=== PATIENT | male | born 1995 | race Caucasian/White ===

== ENCOUNTER 2020-11-01 12:39 | Emergency (ER) | payer OTHER ==
[2020-11-01 12:48] VITALS: BP 123/76; PULSE 65; RESP 20; TEMP 98.1
[2020-11-01] MEDS ORDERED: LIDOCAINE 1%-EPI 1:100,000 20 ML VIAL SQ STA (12:52)
[2020-11-01] MEDS ORDERED: IBUPROFEN 600 MG TAB PO STA (13:06)
--- NOTE | 2020-11-01 13:21 | ED ---
General Adult HPI - General Chief complaint: Wound/Laceration Stated complaint: [facility] - shoulder lac Time Seen by Provider: 11/01/20 12:52 Source: patient, RN notes reviewed Mode of arrival: ambulatory Limitations: no limitations - History of Present Illness Initial comments: 25-year-old male presents to the emergency room for a chief complaint of right s houlder pain. Patient has a laceration to the right shoulder. He was at work when a metal tubing hit him and caused a laceration. States he is having pain which worsens with moving the shoulder.. Patient states his tetanus is up-to-date.Patient has no other complaints at this time including shortness of breath, chest pain, abdominal pain, nausea or vomiting, headache, or visual changes. - Related Data Previous Rx's Medication Instructions Recorded Cephalexin [Keflex] 500 mg PO QID 5 Days #20 cap 11/01/20 Allergies Allergy/AdvReac Type Severity Reaction Status Date / Time No Known Allergies Allergy Verified 11/01/20 12:48 Review of Systems ROS Statement: Those systems with pertinent positive or pertinent negative responses have been documented in the HPI. ROS Other: All systems not noted in ROS Statement are negative. Past Medical History Past Medical History: Asthma Additional Past Medical History / Comment(s): pneumothorax History of Any Multi-Drug Resistant Organisms: None Reported Additional Past Surgical History / Comment(s): chest tube Past Psychological History: No Psychological Hx Reported Smoking Status: Never smoker Past Alcohol Use History: None Reported Past Drug Use History: Marijuana General Exam Limitations: no limitations General appearance: alert, in no apparent distress Head exam: Present: atraumatic, normocephalic, normal inspection Eye exam: Present: normal appearance, PERRL, EOMI. Absent: scleral icterus, conjunctival injection, periorbital swelling ENT exam: Present: normal exam, mucous membranes moist Neck exam: Present: normal inspection. Absent: tenderness, meningismus, lymphadenopathy Respiratory exam: Present: normal lung sounds bilaterally. Absent: respiratory distress, wheezes, rales, rhonchi, stridor Cardiovascular Exam: Present: regular rate, normal rhythm, normal heart sounds. Absent: systolic murmur, diastolic murmur, rubs, gallop, clicks Extremities exam: Present: normal capillary refill (Capillary refill less than 2 seconds, radial pulse 2+.), other (Patient has a 3 cm laceration noted to the lateral aspect of the right proximal humerus area.) Course Vital Signs 11/01/20 12:45 Temperature 98.1 F Pulse Rate 65 Respiratory 20 Rate Blood Pressure 123/76 O2 Sat by Pulse 96 Oximetry Procedures - Laceration Laceration #1 Consent Obtained: verbal consent Indication: laceration Site: upper extremity Size (cm): 4 Depth: simple, single layer Anesthetic Used: lidocaine 1%, with epi Anesthesia Technique: local infiltration Amount (mls): 4 Pre-repair: wound explored, irrigated extensively (with saline pressure irrigation), deep structures intact Type of Sutures: vicryl Size of Sutures: 4-0 Number of Sutures: 7 Technique: simple, interrupted Patient Tolerated Procedure: well, no complications Medical Decision Making - Medical Decision Making Vitals are stable. X-ray shows no fracture or dislocation in the right shoulder. Wound was irrigated thoroughly with saline. Laceration was repaired with 7 simple interrupted sutures. patient will be started on antibiotics given area around wound was contaminated with dirt. He will follow up with his doctor. He will return for any worsening symptoms. Disposition Clinical Impression: Laceration Disposition: HOME SELF-CARE Condition: Good Instructions (If sedation given, give patient instructions): Care For Your Stitches (ED), Laceration (ED) Additional Instructions: Please keep the area clean. Apply ointment twice daily. Take antibiotic as directed. Return to the ER for any worsening symptoms. Prescriptions: Cephalexin [Keflex] 500 mg PO QID 5 Days #20 cap Is patient prescribed a controlled substance at d/c from ED?: No Referrals: Alex Vincent MD [Primary Care Provider] - 1-2 days Time of Disposition: 14:10
--- NOTE | 2020-11-01 13:48 | XR ---
EXAMINATION TYPE: XR shoulder complete RT DATE OF EXAM: 11/01/2020 CLINICAL HISTORY: Laceration injury with pain TECHNIQUE: Three views of the right shoulder are obtained. COMPARISON: None. FINDINGS: There is no acute fracture/dislocation evident in the right shoulder. The acromioclavicul ar and glenohumeral joint spaces appear within normal limits. The visualized ribs are intact and unr emarkable. Overlying gauze material laterally noted. IMPRESSION: There is no acute fracture or dislocation in the right shoulder.
[2020-11-01] MEDS ORDERED: BACITRACIN OINT 1 EACH PACKET TOPICAL STA (14:11)
== END 2020-11-01 14:32 | disposition home or self-care (01) ==
LOC: EC 12:39
DX: S41.011A Laceration without foreign body of right shoulder, initial encounter (principal); J45.909 Unspecified asthma, uncomplicated; F12.90 Cannabis use, unspecified, uncomplicated; W26.8XXA Contact with other sharp object(s), not elsewhere classified, initial encounter; Y99.0 Civilian activity done for income or pay
CPT/HCPCS: 12002; 99283

== ENCOUNTER 2020-11-01 18:41 | Emergency (ER) | payer OTHER ==
[2020-11-01 18:59] VITALS: BP 137/76; PULSE 70; RESP 16; TEMP 97.9
--- NOTE | 2020-11-01 19:25 | ED ---
General Adult HPI - General Chief complaint: Recheck/Abnormal Lab/Rx Stated complaint: [facility] - revisit, arm lac won't stop bleeding Time Seen by Provider: 11/01/20 19:03 Source: patient Mode of arrival: ambulatory Limitations: no limitations - History of Present Illness Initial comments: 25-year-old male presents to emergency department with a chief complaint laceration. Patient reports he injured his right shoulder earlier today and had laceration repair. Patient reports after discharge, he developed bleeding from the laceration site. States he contacted the emergency department was advised to apply pressure to the region and if it did not resolve he should return for reevaluation. He states his tetanus is up-to-date. Reports pain at the site. The laceration site has occurred less than 12 hours ago. He denies any fevers or chills. Denies any pustular discharge from the region. - Related Data Previous Rx's Medication Instructions Recorded Cephalexin [Keflex] 500 mg PO QID 5 Days #20 cap 11/01/20 Allergies Allergy/AdvReac Type Severity Reaction Status Date / Time No Known Allergies Allergy Verified 11/01/20 18:59 Review of Systems ROS Statement: Those systems with pertinent positive or pertinent negative responses have been documented in the HPI. ROS Other: All systems not noted in ROS Statement are negative. Past Medical History Past Medical History: Asthma Additional Past Medical History / Comment(s): pneumothorax History of Any Multi-Drug Resistant Organisms: None Reported Additional Past Surgical History / Comment(s): chest tube Past Psychological History: No Psychological Hx Reported Smoking Status: Never smoker Past Alcohol Use History: None Reported Past Drug Use History: Marijuana General Exam Limitations: no limitations General appearance: alert, in no apparent distress Head exam: Present: atraumatic, normocephalic, normal inspection Eye exam: Present: normal appearance, PERRL, EOMI Pupils: Present: normal accommodation ENT exam: Present: normal exam, normal oropharynx, mucous membranes moist, TM's normal bilaterally, normal external ear exam Neck exam: Present: normal inspection, full ROM. Absent: tenderness, lymphadenopathy Respiratory exam: Present: normal lung sounds bilaterally. Absent: respiratory distress, wheezes, rales, rhonchi, stridor Cardiovascular Exam: Present: regular rate, normal rhythm, normal heart sounds. Absent: systolic murmur Extremities exam: Present: full ROM, tenderness (Tenderness at the laceration site), normal capillary refill. Absent: normal inspection (Small region of bleeding on the right shoulder laceration. One of the sutures appears to be loose), pedal edema, joint swelling, calf tenderness Back exam: Present: normal inspection, full ROM. Absent: tenderness, CVA tenderness (R), CVA tenderness (L) Neurological exam: Present: alert, oriented X3 Psychiatric exam: Present: normal affect, normal mood Skin exam: Present: warm, dry, intact, normal color Course Vital Signs 11/01/20 18:56 Temperature 97.9 F Pulse Rate 70 Respiratory 16 Rate Blood Pressure 137/76 O2 Sat by Pulse 100 Oximetry Procedures - Laceration Laceration #2 Consent Obtained: verbal consent Indication: laceration Site: upper extremity (Right shoulder) Size (cm): 4 Description: linear, clean Depth: simple, single layer Sedation/Analgesia: none Pre-repair: irrigated extensively, deep structures intact Type of Sutures: nylon Size of Sutures: 4-0 Number of Sutures: 2 Technique: simple, interrupted Patient Tolerated Procedure: well, no complications Medical Decision Making - Medical Decision Making 25-year-old male presents to emergency Department with a chief complaint laceration. Laceration site was repaired several hours prior to arrival. The laceration site appeared to be intact, however wanted sutures appear to be slightly loose. This was removed into new sutures were applied. Bleeding has resolved. Dressing was applied. Area was sterilely [place] department to resutured. Return parameters discussed the patient was resting agreeable. Case discussed with Dr. Ferrari. Disposition Clinical Impression: Laceration Disposition: HOME SELF-CARE Condition: Stable Instructions (If sedation given, give patient instructions): Laceration (DC), Care For Your Stitches (DC) Additional Instructions: Please return to the emergency room in 10 days to have sutures removed. Please watch for any signs of infection which may include increased pain, swelling, redness, fever or chills. Please return to emergency room for any signs of infection do occur. Please use clean soap and water over the area to prevent scabbing over your stitches. Please leave wound covered for the first 24-48 hours and then leave wound open to air. Please return to the emergency room for any other concerns. Is patient prescribed a controlled substance at d/c from ED?: No Referrals: Alex Vincent MD [Primary Care Provider] - 1-2 days Time of Disposition: 19:25
== END 2020-11-01 19:36 | disposition home or self-care (01) ==
LOC: EC 18:41
DX: S41.011A Laceration without foreign body of right shoulder, initial encounter (principal); J45.909 Unspecified asthma, uncomplicated; F12.90 Cannabis use, unspecified, uncomplicated; X58.XXXA Exposure to other specified factors, initial encounter
CPT/HCPCS: 12002; 99282

== ENCOUNTER 2020-12-21 15:06 | Emergency (ER) | payer OTHER ==
[2020-12-21 16:05] VITALS: BP 116/60; PULSE 56; RESP 20; TEMP 98
[2020-12-21] MEDS ORDERED: BACITRACIN OINT 1 EACH PACKET TOPICAL ONE (16:39)
[2020-12-21] MEDS ORDERED: LIDOCAINE 1% INJ 10MG/ML (20 ML MDV) SQ ONE (16:39)
--- NOTE | 2020-12-21 18:01 | ED ---
Wound/Laceration HPI - General Chief Complaint: Wound/Laceration Stated Complaint: Hand injury, [facility] Time Seen by Provider: 12/21/20 16:27 Source: patient Mode of arrival: ambulatory Limitations: no limitations - History of Present Illness Initial Comments: Patient is a 25-year-old male presenting to emergency Department with complaints of a laceration to his right thumb. Patient states he slipped at work and went to grab on to something to stop his fall however he grabbed onto a piece of large steel and it cut the base of his right thumb. Bleeding is controlled, he is not on blood thinners. His tetanus vaccine is up-to-date. He has no further complaints. - Related Data Previous Rx's Medication Instructions Recorded Cephalexin [Keflex] 500 mg PO QID 5 Days #20 cap 11/01/20 Allergies Allergy/AdvReac Type Severity Reaction Status Date / Time No Known Allergies Allergy Verified 12/21/20 16:04 Review of Systems ROS Statement: Those systems with pertinent positive or pertinent negative responses have been documented in the HPI. ROS Other: All systems not noted in ROS Statement are negative. Past Medical History Past Medical History: Asthma Additional Past Medical History / Comment(s): pneumothorax History of Any Multi-Drug Resistant Organisms: None Reported Additional Past Surgical History / Comment(s): chest tube Past Psychological History: No Psychological Hx Reported Smoking Status: Never smoker Past Alcohol Use History: None Reported Past Drug Use History: Marijuana General Exam - General Exam Comments Initial Comments: GENERAL: Patient is well-developed and well-nourished. Patient is nontoxic and in no acute distress. HEAD: Atraumatic, normocephalic. EYES: Pupils equal round and reactive to light, extraocular movements intact, sclera anicteric, conjunctiva are normal. Eyelids were unremarkable. ENT: Nares patent, oropharynx clear without exudates. Moist mucous membranes. NECK: Normal range of motion, supple without lymphadenopathy or JVD. LUNGS: Unlabored respirations. Breath sounds clear to auscultation bilaterally and equal. No wheezes rales or rhonchi. HEART: Regular rate and rhythm without murmurs, rubs or gallops. ABDOMEN: Soft, nontender, normoactive bowel sounds. No guarding, no rebound. No masses appreciated. : Deferred MUSCULOSKELETAL: Normal extremities with adequate strength and normal range of motion, no pitting or edema. No clubbing or cyanosis. SKIN: Warm, Dry, normal turgor, no rashes. Patient has a 1 cm laceration to the base of his right thumb near the webbing space. Bleeding is controlled. Limitations: no limitations Course Vital Signs 12/21/20 16:01 Temperature 98.0 F Pulse Rate 56 L Respiratory 20 Rate Blood Pressure 116/60 O2 Sat by Pulse 100 Oximetry Procedures - Laceration Laceration #1 Consent Obtained: verbal consent Indication: laceration Site: hand (Right thumb, near the webbing space.) Size (cm): 1 Description: linear Depth: simple, single layer Anesthetic Used: lidocaine 1% Anesthesia Technique: local infiltration Amount (mls): 3 Pre-repair: irrigated extensively Type of Sutures: nylon Size of Sutures: 4-0 Number of Sutures: 3 Technique: simple, interrupted Patient Tolerated Procedure: well Medical Decision Making - Medical Decision Making Patient is a 25-year-old male here with a 1 cm laceration to his right thumb he sustained while at work today. His tetanus vaccine is up-to-date. Bleeding was controlled with pressure and a bandage. I did clean the wound, closed with 3, 40 sutures. He tolerated procedure well. He is stable for discharge. Disposition Clinical Impression: Laceration of right thumb Disposition: HOME SELF-CARE Condition: Stable Instructions (If sedation given, give patient instructions): Care For Your Stitches (ED) Additional Instructions: Please return to the Emergency Department if symptoms worsen or any other concerns. Sutures need to be removed in 7-10 days. Keep area clean and dry, keep covered while at work. Avoid heavy lifting or squeezing with that hand. Is patient prescribed a controlled substance at d/c from ED?: No Referrals: Alex Vincent MD [Primary Care Provider] - 1-2 days Time of Disposition: 18:01
== END 2020-12-21 18:12 | disposition home or self-care (01) ==
LOC: EC 15:06
DX: S61.011A Laceration without foreign body of right thumb without damage to nail, initial encounter (principal); J45.909 Unspecified asthma, uncomplicated; F12.90 Cannabis use, unspecified, uncomplicated; W26.8XXA Contact with other sharp object(s), not elsewhere classified, initial encounter; Y99.0 Civilian activity done for income or pay
CPT/HCPCS: 99282; 12001; J2001

== ENCOUNTER → 2022-04-08 | Outpatient (CLI) | payer OTHER ==
--- NOTE | 2022-04-08 14:15 | XR ---
EXAMINATION TYPE: XR hand complete RT DATE OF EXAM: 04/08/2022 2:05 PM INDICATION: Patient age:Male; 27 years old; Reason for study: [id number] RT HAND PAIN; [facility]. COMPARISON: Bilateral forearm radiographs 02/21/2001. TECHNIQUE: Frontal, lateral and oblique views of the right hand were obtained. FINDINGS: Labeled images are incorrectly labeled as left. Normal alignment of the visualized joints. No acute osseous pathology is identified. Soft tissue swelling around the fifth metacarpal. No radio paque foreign bodies. IMPRESSION: 1. No acute fracture or dislocation. There is continued clinical concern, follow-up radiograph in 10 -14 days is recommended. 2. Swelling around the fifth metacarpal.
== END | disposition home or self-care (01) ==
LOC: RADXRYALE 13:49
PROVIDERS: ATTEND Physician Assistant
DX: M79.89 Other specified soft tissue disorders (principal)

== ENCOUNTER → 2022-04-15 | Outpatient (CLI) | payer OTHER ==
--- NOTE | 2022-04-15 14:00 | XR ---
EXAMINATION TYPE: XR hand complete RT DATE OF EXAM: 04/15/2022 1:53 PM INDICATION: Patient age:Male; 27 years old; Reason for study: [id number] RT HAND PAIN; [facility]. COMPARISON: Right hand radiograph 04/08/2022. TECHNIQUE: Frontal, lateral and oblique views of the right hand were obtained. FINDINGS: Normal alignment of the visualized joints. No callus formation identified. No acute fractu re. No osseous erosions. Similar mild soft tissue swelling around the fifth metacarpal. IMPRESSION: 1. No acute fracture or dislocation. No callus formation identified. 2. Swelling around the fifth metacarpal redemonstrated.
== END | disposition home or self-care (01) ==
LOC: RADXRYALE 13:37
PROVIDERS: ATTEND Physician Assistant
DX: M79.641 Pain in right hand (principal); M79.89 Other specified soft tissue disorders